=== PATIENT | female | born 1985 | race American Indian/Alaskan Native ===

== ENCOUNTER 2017-12-23 22:24 | Emergency (ER) | payer SELFPAY ==
[2017-12-23 22:48] VITALS: BP 147/100
== END 2017-12-24 08:40 | disposition left against medical advice (07) ==
LOC: ED 22:24
DX: R07.0 Pain in throat (principal); H92.03 Otalgia, bilateral; Z53.21 Procedure and treatment not carried out due to patient leaving prior to being seen by health care provider

== ENCOUNTER 2018-03-15 06:21 | Emergency (ER) | payer SELFPAY ==
[2018-03-15 06:35] VITALS: BP 148/97
[2018-03-15] MEDS ORDERED: NACL 0.9% 1000 ML 1,000 ML IV ONE (06:40)
== END 2018-03-15 07:01 | disposition left against medical advice (07) ==
LOC: ED 06:21
DX: R10.9 Unspecified abdominal pain (principal); Z53.21 Procedure and treatment not carried out due to patient leaving prior to being seen by health care provider